=== PATIENT | female | born 1945 | race Caucasian/White ===

== ENCOUNTER 2018-10-01 06:33 | Inpatient (IN) | payer OTHER ==
[2018-10-01] MEDS ORDERED: LR 1,000 ML IV ONE (07:15)
--- NOTE | 2018-10-01 07:39 | PDHPUP ---
History & Physical Update H&P update statement: This history and physical update is based on an assessment of the patient which was completed after admission or registration (within 24 hours), but prior to the surgery/procedure. H&P update: H&P reviewed & patient examined, no change in patient's condition since H&P completed
[2018-10-01] MEDS ORDERED: ROPIVACAINE 0.2% 80 MG, EPINEPHrine 0.2 MG, KETOROLAC TROMETHAMINE 30 MG, morphINE 10 M... IU ONE (07:40)
[2018-10-01] MEDS ORDERED: TRANEXAMIC ACID 3,000 MG in NS (SYRINGE) 50 ML IRR ONE (07:40)
[2018-10-01] MEDS ORDERED: PREGABALIN 150 MG CAP PO ONE (07:40)
[2018-10-01] MEDS ORDERED: ACETAMINOPHEN 500 MG TAB PO ONE (07:40)
[2018-10-01] MEDS ORDERED: ceFAZolin 2 GM/DEXTROSE 100 ML IV ONE (07:40)
--- NOTE | 2018-10-01 07:40 | PDGENHP ---
History & Physical Chief Complaint: l knee pain History of Present Illness: 73 y/o female with hx of tubercle transfer and femur fracture with retained hw with knee oa Relevant Physical Exam: perrl. cta. rrr. soft and nt. l knee with multiple scars and crepitus to rom Cardiorespiratory Assessment: cta. rrr
[2018-10-01] MEDS ORDERED: BUPIVACAINE/EPI 0.5% 30 ML SDV ONE (07:52)
[2018-10-01] MEDS ORDERED: BACITRACIN 50,000 UNITS/10 ML SYR IRR ONE (07:53)
[2018-10-01] MEDS ORDERED: POLYMYXIN B SULFATE 500,000 UNIT/10 ML SYR IRR ONE (07:53)
[2018-10-01] MEDS ORDERED: LR 1,000 ML IV SCH ×2 (08:00→12:00)
[2018-10-01] MEDS ORDERED: MIDAZOLAM 2 MG/2 ML VIAL ONE (08:08)
[2018-10-01] MEDS ORDERED: MIDAZOLAM 2 MG/2 ML VIAL IVP ONE (08:09)
[2018-10-01] MEDS ORDERED: fentaNYL 100 MCG/2 ML INJ ONE (08:17)
[2018-10-01] MEDS ORDERED: PROPOFOL/EMULSION 500 MG/50 ML BOTTLE IV ONE ×3 (08:18→10:01)
[2018-10-01] MEDS ORDERED: ePHEDrine SULFATE 25 MG/5 ML SYR ONE (08:41)
[2018-10-01] MEDS ORDERED: PHENYLEPHRINE HCL 100 MCG/ML SYR ONE (09:22)
--- NOTE | 2018-10-01 09:35 | PDANEPAE ---
ANE History of Present Illness L femur hardware removal and Total Knee ANE Past Medical History - Cardiovascular History Hx Hypertension: No Hx Arrhythmias: Yes Hx Chest Pain: No Hx Coronary Artery / Peripheral Vascular Disease: No Hx CHF / Valvular Disease: No Hx Palpitations: No Cardiovascular History Comment: "very mild heart murmur" per pt report. LBBB - Pulmonary History Hx COPD: No Hx Asthma/Reactive Airway Disease: No Hx Recent Upper Respiratory Infection: No Hx Oxygen in Use at Home: Yes O2 in Use at Home (L/minute): uses high flow o2 x 15 min for headaches Hx Sleep Apnea: No Sleep Apnea Screening Result - Last Documented: Negative Pulmonary History Comment: hx of PE's - Neurologic History Hx Cerebrovascular Accident: No Hx Seizures: No Hx Dementia: No Neurologic History Comment: headaches - Endocrine History Hx Diabetes: No - Renal History Hx Renal Disorders: Yes Renal History Comment: hx of uti's - Liver History Hx Hepatic Disorders: No - Neurological & Psychiatric Hx Hx Neurological and Psychiatric Disorders: Yes Neurological / Psychiatric History Comment: hx of situational depression - Cancer History Hx Cancer: No - Congenital Disorder History Hx Congenital Disorders: No - GI History Hx Gastrointestinal Disorders: Yes Gastrointestinal History Comment: hx of colonoscopies. diverticulitis recent abx x 1 week - Other Health History Other Health History: wears reading glasses - Chronic Pain History Chronic Pain: Yes (left knee and ankle) - Surgical History Prior Surgeries: cataract surgery. left patella tendon transfer in 70's. left ankle repair in mid 80's. 1990 right acl repair. 1998 emergency left tibia fx. repair. 02/1999 left femur repair- emergency resulted in PE's. ANE Review of Systems Review of Systems: - Exercise capacity METS (RN): 4 METS ANE Patient History - Allergies Allergies/Adverse Reactions: cetirizine [From Zyrtec] Allergy (Verified 10/01/18 07:33) Headache metronidazole [From Flagyl] Allergy (Verified 10/01/18 07:33) Vomiting/Diarrhea NSAIDS (Non-Steroidal Anti-Inflamma Allergy (Verified 10/01/18 07:33) GIB - Home Medications Home medications: home medication list seen and reviewed Home Medications: Acetaminophen [Tylenol 325mg (*)] 325 mg PO Q6HRS PRN 09/16/18 [Last Taken 09/29] C/E/Zn/Cu/OM3/DHA/EPA/LUT/ZEAX [Preservision Areds 2 Softgel] 1 each PO DAILY [Last Taken 09/21/18] Calcium Carbonate [Oyster Shell Calcium 500 mg (*)] 500 mg PO DAILY 09/16/18 [ Last Taken 09/21/18] Glucosamine/Chondroitin [Glucosamine/Chondroitin (*)] 1 each PO DAILY 09/16/18 [ Last Taken 09/21/18] Herbals/Supplements -Info Only 1 ea PO DAILY 09/16/18 [Last Taken 09/21/18] Spivey-3 Fatty Acids [Fish Oil 1000 mg (*)] 1,000 mg PO DAILY 09/16/18 [Last Taken 09/21/18] Verapamil [Calan 120MG (*)] 120 mg PO BID 09/16/18 [Last Taken 09/30/18] - NPO status NPO Since - Liquids (Date): 10/01/18 NPO Since - Liquids (Time): 05:00 NPO Since - Solids (Date): 09/30/18 NPO Since - Solids (Time): 19:30 - Anes Hx Anes Hx: no prior problems - Smoking Hx Smoking Status: Former smoker - Alcohol Use Alcohol Use: None - Family Anes Hx Family Anes Hx: none Family Hx Anesthesia Complications: none ANE Labs/Vital Signs - Labs - CBC WBC: reviewed and okay - Vital Signs Blood Pressure: 127/84 Heart Rate: 72 Respiratory Rate: 16 O2 Sat (%): 94 Height: 162.56 cm Weight: 61.235 kg ANE Physical Exam - Airway Neck exam: FROM Mallampati Score: Class 1 Mouth exam: normal dental/mouth exam - Pulmonary Pulmonary: no respiratory distress - Cardiovascular Cardiovascular: regular rate and rhythym - ASA Status ASA Status: I ANE Anesthesia Plan Anesthesia Plan: MAC, spinal Regional Anesthesia: adductor canal FNB Urgent/Emergent Case: Saadiaadrienne radha completed preop but documented later for safe timely pt care
[2018-10-01] MEDS: CALCIUM CHLORIDE 1 GM/10 ML INJ ONE ×2 (09:36→10:09)
[2018-10-01] MEDS: THROMBIN (BOVINE) 5,000 UNIT VIAL TP ONE ×2 (09:38→10:10)
[2018-10-01] MEDS ORDERED: oxyCODONE IR 5 MG TAB PO PRN (11:02)
[2018-10-01] MEDS ORDERED: DEXAMETHASONE 4 MG/ML VIAL IVP PRN (11:02)
[2018-10-01] MEDS ORDERED: HYDROCODONE/APAP 5/325 TAB PO PRN (11:02)
[2018-10-01] MEDS ORDERED: fentaNYL 100 MCG/2 ML INJ IVP PRN (11:02)
[2018-10-01] MEDS ORDERED: METOCLOPRAMIDE 10 MG/2 ML VIAL IVP PRN ×2 (11:02→11:39)
[2018-10-01] MEDS ORDERED: MEPERIDINE 25 MG/0.5 ML AMP IVP PRN (11:02)
[2018-10-01] MEDS ORDERED: PHENYLEPHRINE HCL 100 MCG/ML SYR IVP PRN (11:02)
[2018-10-01] MEDS ORDERED: ONDANSETRON 4 MG/2 ML VIAL IVP PRN ×2 (11:02→11:39)
[2018-10-01] MEDS ORDERED: NALOXONE HCL 0.4 MG/ML INJ IVP PRN (11:02)
[2018-10-01] MEDS ORDERED: LABETALOL HCL 5 MG/ML 20 ML MDV IVP PRN (11:02)
[2018-10-01] MEDS ORDERED: LR 500 ML IV PRN (11:02)
[2018-10-01] MEDS ORDERED: PROMETHAZINE HCL 25 MG/ML INJ IVP PRN ×2 (11:02→11:39)
[2018-10-01] MEDS ORDERED: ACETAMINOPHEN 500 MG TAB PO PRN (11:02)
[2018-10-01] MEDS ORDERED: ALBUTEROL 3 ML DEYVIAL IH PRN (11:02)
[2018-10-01] MEDS ORDERED: PROPOFOL 200 MG/20 ML VIAL ONE (11:19)
[2018-10-01] MEDS ORDERED: LACTULOSE 20 GM/30 ML UDCUP PO PRN (11:39)
[2018-10-01] MEDS ORDERED: POLYETHYLENE GLYCOL 3350 17 GM PKT PO PRN (11:39)
[2018-10-01] MEDS ORDERED: diphenhydrAMINE 25 MG CAP PO PRN (11:39)
[2018-10-01] MEDS ORDERED: MAGNESIUM HYDROXIDE 30 ML UDCUP PO PRN (11:39)
[2018-10-01] MEDS ORDERED: PROMETHAZINE HCL 25 MG SUPPR PR PRN (11:39)
[2018-10-01] MEDS ORDERED: TEMAZEPAM 15 MG CAP PO PRN (11:39)
[2018-10-01] MEDS ORDERED: BISACODYL 10 MG SUPP PR PRN (11:39)
[2018-10-01] MEDS ORDERED: TAPENTADOL HCL 50 MG TAB PO PRN (11:39)
[2018-10-01] MEDS ORDERED: DIPHENOXYLATE/ATROPINE LOMOTIL 1 TAB PO PRN (11:39)
[2018-10-01] MEDS ORDERED: ONDANSETRON DISINTEGRATING 4 MG TAB PO PRN (11:39)
--- NOTE | 2018-10-01 11:39 | POSTOPPROG ---
Post Op Note Date of Operation: 10/01/18 Surgeon: Radha Marques Glass Scullion: coltrain Anesthesia: Epidural, IV Sedation, Other (Specify) Pre-op Diagnosis: l knee oa with retained hw Procedure: l tkr with ravinder with fluoro Inf/Abcess present in the surg proc area at time of surgery?: No Depth: Deep Incisional (Fascial) EBL: 100-500
--- NOTE | 2018-10-01 12:21 | PDMN ---
Medical Necessity Medical necessity: Pt meets inpt criteria per MD order and [facility], Knee Arthroplasty, Total, A-2 days. 73 y/o w/L knee OA and retained hardware admitted for L TKA w/removal of IM nail in L femur w/fluoro. PMH includes arrhythmias, PE, headaches, UTI's, and situational depression. Given age and PMH and procedures of TKA and DEEP pt at higher risk for post-op complications and meets inpt status.
--- NOTE | 2018-10-01 13:14 | GOP ---
[f rep st] OPERATIVE REPORT DATE OF OPERATION: 10/01/2018 SURGEON: Radha Marques MD RN TRAVEL: Amando Yancye, CSFA, LSA whose presence was medically necessary. ANESTHESIA: Epidural plus adductor canal nerve block, per the surgeon's request. PREOPERATIVE DIAGNOSIS: Left knee osteoarthritis with retained hardware. POSTOPERATIVE DIAGNOSIS: Left knee osteoarthritis with retained hardware. PROCEDURE PERFORMED: Left total knee arthroplasty as well as multiple removals of hardware from the tibia and from the femur with the use of fluoroscopy. FINDINGS: INDICATIONS: This is a 73-year-old female who had previously had a retrograde IM nail into her femur , as well as tibial plateau ORIF and a tibial tubercle osteotomy in the past. She has developed colleen re osteoarthritic changes within the knee in all 3 compartments, as well as a severe patella baja klein iting her activity. She wishes to have surgery in order to resolve the problem. DESCRIPTION OF PROCEDURE: The patient brought to the operating room after the left side had been carrington ntified as the correct side by the patient, nurse, and physician. Once in the operating room, she wa s given epidural nerve block and placed in supine position. The left lower extremity was then steril haresh prepped and draped in the usual fashion using GSI solution. Once prepped and draped, incision wa s made over the anterior portion of the proximal thigh over the area of her old incision with sharp d issection carried down through the skin and subcutaneous layers. Once dissection carried down to the musculature layer, there were noted to be multiple small nerves and circumflex vessels in the area. Bleeding was controlled using electrocautery. Once the screw was able to be found, it was able to b e removed without difficulty. The wound was then closed to include 0 Vicryl suture for the fascial l ky and deep subcutaneous layers, 2-0 Vicryl for the subcutaneous layers, and a 3-0 V-Loc suture in a running subcuticular stitch for the skin. A sterile tourniquet was then placed on the upper portio n of the left thigh. The leg was exsanguinated. Tourniquet inflated to 250 mmHg. Two incisions wer e made on the lateral portion of the proximal tibia with blunt dissection carried down to the bone. The 2 screws going from lateral to medial in the proximal tibia were removed. Attention was then tur teresa medially at the medial femoral condyle. The 2 incisions in this area were opened and connected i n order to gain further access onto the screw heads. Blunt dissection was carried down to the bone w ith electrocautery used to find the screw heads. The screws were able to be removed without difficul ty. Attention was then turned to the knee, where an old anterior incision was incorporated into an a nterior skin incision 1 handbreadth above and below the patella with sharp dissection carried down th rough the skin and subcutaneous layer. A medial parapatellar incision was made through the extensor mechanism with the patella brought to the side, but not everted. She was noted to have severe osteoa rthritic changes in all 3 compartments. A rongeur was used to remove bone along Nye line until finding and locating the retrograde femoral arturo. Large screw removal set was placed within the prox imal portion of the femoral arturo at its distal extent, and a slap hammer was used to remove the arturo in its entirety. Once completed, a medullary guide was placed within the femur, and then a cutting blo ck was set on the distal end of the femur, set to remove 10 mm of bone in 5 degrees of valgus. Once pinned into place, the measured guide was removed. Oscillating saw was used to remove the distal end of the femur. Once achieving a flat cut, cartilage was removed from the posterior condyles and a si zing guide was placed on the distal end of the femur, noting that a size 5 femur seemed to fit best. Therefore, drill holes had been made, and a size 5 four-in-one cutting block was put in place. The anterior, posterior, and chamfer cuts were made. Osteophytes were removed from the area. A trial fe moral component was put in place. The knee was able to achieve full extension, suggesting an adequat e amount of bone had been removed. Lug holes were drilled for the femoral component. The trial was removed. The knee was brought to as much flexion as possible. An external tibial guide was put in p lace, set in neutral varus-valgus, slight posterior slope, set to remove 2 mm of bone from the low si de of the tibia, which was the medial side. Oscillating saw was used to remove the proximal portion of the tibia until achieving a flat cut and after the ACL and medial lateral meniscus had been remove d. Trial femur, tibia, and liner were put into place. The knee was able to achieve full extension, suggesting an adequate amount of bone had been removed. Therefore, the pins were removed. All the t rials were removed from the knee. Multiple sizers were placed onto the tibia and noted a size 4 tibi al tray seemed to fit best. It was therefore set in slight external rotation, pinned into place, and a keel punch passed through the trial. The keel punch and the trials were removed. The knee was br ought to full extension. The patella was then everted, held in place with towel clamps. It was jeanette ured to be 22 mm in thickness. Then, an oscillating saw was used to remove the posterior third of th e patella, leaving 15 mm of bone. Multiple sizes were placed on the cut surface of the patella, noti ng a 32 mm button seemed to fit best. Therefore, lug holes were drilled for the 32 mm component. Al l cut surfaces of bone were then thoroughly irrigated with antibiotic solution using pulsatile lavage while cement was being mixed. Once cement was doughy, it was placed on the proximal end of the tibi a with a size 4 Triathlon primary tibial base plate from Donna put into place and excess cement rem maggy using freer elevators. Cement was placed on the posterior skids of the femoral component and th en placed on the distal anterior portions of the femur with an abundant amount of cement placed in th e area of the femoral canal associated with the hardware removal. Then, a size 5 Triathlon cruciate- retaining left femoral component was put into place and excess cement removed using freer elevator. A trial liner was placed in the tibial tray. The leg was kept in full extension and underwent pressu rized cement. Cement was placed on the cut surface of the patella with a 32 mm Triathlon asymmetric patella locked into place and excess cement removed using freer elevator. While waiting for the ceme nt to dry, a drug cocktail was injected into the posterior capsule, the periosteum of the femur and t ibia, as well as the extensor mechanism. Tranexamic acid was irrigated through the wound. Once the cement had adequately hardened, any excess cement was removed using a combination of rongeur and oste otome. Multiple trials were placed in the tibial tray, noting that a 16 mm polyethylene liner seemed to give good stability in extension and in flexion. Therefore, a size 4 Triathlon polyethylene inse rt, a size 16 mm insert, was put into place and noted to fit securely. The tourniquet was released a t 86 minutes. Bleeding was controlled using electrocautery. The wound was then closed in layers to include 0 Vicryl suture in a sgfvoo-ny-uoyko type stitch for the extensor mechanism, 0 Vicryl and 2-0 Vicryl suture placed for the subcutaneous layers, and a 3-0 V-Loc suture in a running subcuticular s titch for the skin. The 2 incisions on the lateral portion of the knee were closed using 2-0 Vicryl suture for the subcutaneous tissue and V-Loc suture in a running subcuticular stitch for the skin. T hen, the 1 larger medial incision associated with the medial femoral condyle was closed in layers to include 0 Vicryl suture and 2-0 Vicryl suture for subcutaneous layers and a 3-0 V-Loc suture in a run carie subcuticular stitch for the skin. The patient had all wounds dressed with Steri-Strips, Xerofor m, and 4 x 4, wrapped in Kerlix. The leg was completely undraped in the operating room. Tourniquet removed from the thigh and Nicolas wrap placed around the knee. She had 4x4s and a Tegaderm placed on th e proximal portion of the hip at this wound. She was then transferred onto a stretcher and sent to [facility] recovery room in good condition. TOURNIQUET TIME: 86 minutes. /[id number]/MODL
[2018-10-01] MEDS: ACETAMINOPHEN 325 MG TAB PO SCH ×4 (13:24→23:53)
[2018-10-01] MEDS: traMADol 50 MG TAB PO SCH ×2 (13:25→18:12)
[2018-10-01] MEDS: KETOROLAC 15 MG/1 ML SDV IVP SCH ×2 (13:30→16:53)
--- NOTE | 2018-10-01 13:32 | POSTANESTH ---
Post Anesthetic Evaluation Cardiovascular Status: Normal, Stable Respiratory Status: Normal, Stable Level of Consciousness/Mental Status: Can Participate in Eval Pain Control: Adequate, Prn Tx Ordered Nausea/Vomiting Control: Adequate, Prn Tx Ordered Complications Possibly Related to Anesthesia: None Noted
[2018-10-01] MEDS: CYCLOBENZAPRINE 10 MG TAB PO PRN (14:33)
[2018-10-01] MEDS: ceFAZolin 2 GM/DEXTROSE 100 ML IV SCH ×2 (16:04→23:54)
[2018-10-01] MEDS: SENNOSIDES/DOCUSATE SODIUM TAB PO SCH (20:17)
[2018-10-01] MEDS: FAMOTIDINE 20 MG TAB PO SCH (20:18)
[2018-10-01] MEDS: VERAPAMIL 120 MG TAB PO SCH (20:18)
[2018-10-02] MEDS: KETOROLAC 15 MG/1 ML SDV IVP SCH ×2 (00:23→01:45)
[2018-10-02] MEDS: traMADol 50 MG TAB PO SCH ×5 (00:23→17:12)
[2018-10-02] MEDS: ACETAMINOPHEN 325 MG TAB PO SCH ×3 (05:54→17:11)
[2018-10-02] MEDS: SENNOSIDES/DOCUSATE SODIUM TAB PO SCH ×2 (08:03→21:40)
[2018-10-02] MEDS: RIVAROXABAN 10 MG TAB PO SCH (08:03)
[2018-10-02] MEDS: FAMOTIDINE 20 MG TAB PO SCH ×2 (08:03→21:40)
[2018-10-02] MEDS: VERAPAMIL 120 MG TAB PO SCH ×2 (09:34→21:39)
--- NOTE | 2018-10-02 12:27 | SOAPPROG ---
SOAP Progress Note Assessment/Plan: Assessment: Janine is now POD#1 s/p left knee hardware removal with LTKA. She is having increased pain today with PT as well as some nausea PE: Dressing is clean and dry. Calf is soft to compression without pain. NV intact LLE. Plan: Plan for patient to stay tonight and will reassess with PT/OT tomorrow. Currently the plan is to discharge home with home PT/OT once cleared. She will continue oral pain medication. 10/02/18 12:23 Objective: Vital Signs Temp Pulse Resp BP Pulse Ox 36.4 C 69 18 108/67 97 10/02/18 11:14 10/02/18 11:14 10/02/18 11:14 10/02/18 11:14 10/02/18 11:14 Laboratory Results 10/02/18 05:04 10/01/18 10/02/18 10/03/18 05:59 05:59 05:59 Intake Total 2120 Output Total 0912 600 Balance -805 -600 ICD10 Worksheet Patient Problems: Problems Problem Status Onset Osteoarthritis of left knee Acute - ICD10 Problem Qualifiers (1) Osteoarthritis of left knee
--- NOTE | 2018-10-02 14:26 | ASMTCMCOM ---
CM Note CM Note Notes: Pt had planned knee surgery, resides in [place] and will d/c to son [facility] for at least the next two weeks. Pt was pre-arranged with [facility] prior to surgery and Meg with [facility] has [facility]'s address. PT rec HC today, OT eval pending. Pt will not d/c today, Meg was updated. D/c plan of care: Home with [facility] Date Signed: 10/02/2018 02:26 PM Electronically Signed By:MARGARET Mckay
[2018-10-02] MEDS: CYCLOBENZAPRINE 10 MG TAB PO PRN (21:39)
[2018-10-03] MEDS: traMADol 50 MG TAB PO SCH ×4 (00:12→19:32)
[2018-10-03] MEDS: ACETAMINOPHEN 325 MG TAB PO SCH ×4 (00:12→18:30)
[2018-10-03] MEDS ORDERED: NS 500 ML IV ONE (08:30)
[2018-10-03] MEDS: RIVAROXABAN 10 MG TAB PO SCH (08:48)
[2018-10-03] MEDS: oxyCODONE IR 5 MG TAB PO PRN ×3 (08:48→18:31)
[2018-10-03] MEDS: FAMOTIDINE 20 MG TAB PO SCH ×2 (08:49→21:21)
[2018-10-03] MEDS: SENNOSIDES/DOCUSATE SODIUM TAB PO SCH ×2 (08:57→21:25)
[2018-10-03] MEDS: VERAPAMIL 120 MG TAB PO SCH ×2 (08:57→21:19)
[2018-10-03] MEDS: CYCLOBENZAPRINE 10 MG TAB PO PRN ×2 (12:23→21:23)
--- NOTE | 2018-10-03 13:04 | SOAPPROG ---
SOAP Progress Note Assessment/Plan: Assessment: Janine is now POD#2 s/p left knee hardware removal with LTKA. She is having continued pain today with PT as well as some nausea. She had HGB of 7.7 this morning which is trending up and is now 8.0. PE: Dressing is clean and dry. Calf is soft to compression without pain. NV intact LLE. Plan: Plan for patient to stay tonight and will plan on discharge to SNF ( [facility]) tomorrow. She will continue oral pain medication as well as Xarelto 10 mg for DVT prophylaxis. 10/03/18 13:03 Objective: Vital Signs Temp Pulse Resp BP Pulse Ox 36.8 C 85 18 120/66 95 10/03/18 11:14 10/03/18 11:14 10/03/18 11:14 10/03/18 11:14 10/03/18 11:14 Laboratory Results 10/03/18 08:41 10/02/18 10/03/18 10/04/18 05:59 05:59 05:59 Intake Total 2120 Output Total 1773 1250 Balance -805 -1250 ICD10 Worksheet Patient Problems: Problems Problem Status Onset Osteoarthritis of left knee Acute - ICD10 Problem Qualifiers (1) Osteoarthritis of left knee
--- NOTE | 2018-10-03 13:05 | PDIAF ---
- Diagnosis Diagnosis: Left knee osteoarthritis Code Status: Full Code - Medication Management Discharge Medications: electronically signed and located in the Home Medication List. - Orders Services needed: Physical Therapy, Occupational Therapy Diet Recommendation: no restrictions on diet Diet Texture: Regular Texture Diet Additional Instructions: WBAT LLE. Xarelto x10 days post op. Prescription for pain medication in chart. Follow up in 10-14 days for repeat evaluation. - Follow Up Care Current Providers and Referrals: NGUYEN RAI MD [Other] Radha Marques MD [Medical Doctor] -
--- NOTE | 2018-10-03 13:18 | ASMTCMCOM ---
CM Note CM Note Notes: Today PT rec SNF, pt amenable and chooses [facility]. Referral sent to PB in [employer], PB will need [employer] insurance authorization. D/c plan of care: [facility] Date Signed: 10/03/2018 01:17 PM Electronically Signed By:MARGARET Mckay
[2018-10-04] MEDS: ACETAMINOPHEN 325 MG TAB PO SCH ×3 (00:45→11:58)
[2018-10-04] MEDS: traMADol 50 MG TAB PO SCH ×2 (01:07→06:17)
[2018-10-04] MEDS: oxyCODONE IR 5 MG TAB PO PRN ×3 (03:41→11:58)
[2018-10-04 07:41] VITALS: BP 132/67
[2018-10-04] MEDS: RIVAROXABAN 10 MG TAB PO SCH (08:54)
[2018-10-04] MEDS: VERAPAMIL 120 MG TAB PO SCH (08:54)
[2018-10-04] MEDS: FAMOTIDINE 20 MG TAB PO SCH (08:54)
[2018-10-04] MEDS: SENNOSIDES/DOCUSATE SODIUM TAB PO SCH (08:54)
[2018-10-04] MEDS: CYCLOBENZAPRINE 10 MG TAB PO PRN (09:25)
--- NOTE | 2018-10-04 13:37 | ASMTDCNOTE ---
Case Management Discharge Discharge Order Complete? Answers: Yes Patient to Obtain Answers: Other Notes: SNF Medications Faxed Final Orders Answers: Yes Notes: via [employer] Agency/Facility Transfer Answers: Yes Notes: via [employer] Report Printed & Faxed to Receiving Agency Family Notified Answers: No Discharge Comments Notes: CM call to Lisha with [facility] [phone], the patient has received authorization and the facility is able to accept the patient today. CM met with patient, she states she is ready to discharge and will go by wheelchair at noon. JOSE gave report to Joyce RN [phone]. CM explained and delivered IM, patient signed for receipt, IM placed in back of chart. Facesheet given to test desk trouble locator for transport. Date Signed: 10/04/2018 01:36 PM Electronically Signed By:Lilliana De Leon
--- NOTE | 2018-10-04 13:38 | ASDISCHSUM ---
Discharge Information Plan Status:SNF Medically Cleared to Leave:10/03/2018 Discharge Date:10/04/2018 12:07 PM D/C Disposition:Snf Facility ADT D/C Disposition:Snf Facility Projected Discharge Date:10/04/2018 11:00 AM Transportation at D/C:Wheelchair Van Discharge Delay Reason: Follow-Up Date:10/04/2018 11:00 AM Discharge Slot:1 - 8:01 am - 12:00 noon Final Diagnosis:s/p Left Knee Hardware Removal with LTKA Placement Information Referral Type:*Home Health Care Services Referral ID:[id number] Provider Name: Address 1: Phone Number: Address 2: Fax Number: City: Selection Factors: State: Referral Type:*Long-Term/SNF Referral ID:[id number] Provider Name:[facility] Address 1:[address] Phone Number: Address 2: Fax Number: [facility]:[place] Selection Factors: State:[place] Patient Contact Information Contact Name:PK Relationship:Son Address: Work Phone: City: [facility] Phone: State/Zip Code: Email: Financial Information Financial Class:Medicare Advantage Plans Primary Plan Desc:[facility] [employer] Primary Plan Number:[id number] Secondary Plan Desc: Secondary Plan Number: Assessment Information [facility] CM Progress Note CM Note CM Note Notes: Pt had planned knee surgery, resides in [place] and will d/c to [facility] for at least the next two weeks. Pt was pre-arranged with [facility] prior to surgery and Meg with [facility] has [facility]'s address. PT rec HC today, OT radha pending. Pt will not d/c today, Meg was updated. D/c plan of care: Home with [facility] Date Signed: 10/02/2018 02:26 PM Electronically Signed By:MARGARET Mckay [facility] Progress Note CM Note CM Note Notes: Today PT rec SNF, pt amenable and chooses [facility] [place]. Referral sent to PB in [employer], PB will need [employer] insurance authorization. D/c plan of care: [facility] Date Signed: 10/03/2018 01:17 PM Electronically Signed By:MARGARET Mckay Case Management Discharge Plan Note Case Management Discharge Discharge Order Complete? Answers: Yes Patient to Obtain Answers: Other Notes: SNF Medications Faxed Final Orders Answers: Yes Notes: via [employer]/Facility Transfer Answers: Yes Notes: via [employer] Report Printed & Faxed to Receiving Agency Family Notified Answers: No Discharge Comments Notes: JOSE call to Lisha with [facility] [phone], the patient has received authorization and the facility is able to accept the patient today. JOSE met with patient, she states she is ready to discharge and will go by wheelchair at noon. JOSE gave report to ALESIA Cook [phone]. JOSE explained and delivered IM, patient signed for receipt, IM placed in back of chart. Facesheet given to front office manager for transport. Date Signed: 10/04/2018 01:36 PM Electronically Signed By:Lilliana De Leon Intervention Information Intervention Type:*IM-Signed Date of Service:10/04/2018 10:00 AM Patient Type:Inpatient Staff Member:Lilliana De Leon Hours: Discipline: Severity: Comment:IM delivered and patient signed for receipt, placed in back of chart.
== END 2018-10-04 12:07 | DRG 470 ==
LOC: F3N 06:33
PROVIDERS: ADMIT Orthopaedic Surgery; ATTEND Orthopaedic Surgery
DX: M17.12 Unilateral primary osteoarthritis, left knee (principal); R01.1 Cardiac murmur, unspecified; Z87.891 Personal history of nicotine dependence; Z86.711 Personal history of pulmonary embolism
CPT/HCPCS: 97110-GP; 97116-GP; 97161-GP; 97166-GO; 97530-GO; 97530-GP; 97535-GO; C1713; J0171; J0690; J1885; J2250; J2270; J2370; J2405; J2704; J2795; J3010